=== PATIENT | female | born 1955 | race Caucasian/White ===

== ENCOUNTER 2017-01-09 07:25 | Day surgery (SDC) | payer BC ==
[~2017-01-09 07:25] MED LIST: Buffered Lidocaine 1% SYR 3ML* 3 ML/SYR SYRINGE INTRADERM ONE; Dexamethasone IV* 4 MG/ML 1 ML (4 MG) IV SLOW PU ONE; Famotidine IV* 10 MG/ML 2 ML (20 mg) IV ONE
[2017-01-09] MEDS ORDERED: Dexamethasone IV* 4 MG/ML 1 ML (4 MG) ONE (07:38)
[2017-01-09] MEDS ORDERED: Famotidine IV* 10 MG/ML 2 ML (20 mg) ONE (07:38)
[2017-01-09] MEDS ORDERED: fentaNYL* 50 MCG/ML 2 ML VIAL (100 MCG VIAL) ONE (08:33)
[2017-01-09] MEDS ORDERED: Lidocaine 2% PF * 5 ML VIAL ONE (08:34)
[2017-01-09] MEDS ORDERED: Midazolam* 1 MG/ML 2 ML VIAL (2 MG) ONE (08:34)
[2017-01-09] MEDS ORDERED: Propofol* 10 MG/ML 20 ML BTL IV PUSH ONE (08:34)
[2017-01-09] MEDS ORDERED: Ketorolac INJ* 30 MG/ML 1 ML VIAL ONE (08:34)
[2017-01-09] MEDS ORDERED: PROCHLORPERAZINE INJ 5 MG/ML 2 ML VIAL IV PRN (08:52)
[2017-01-09] MEDS ORDERED: HYDROcodone/ACETAMIN 5-325 MG* 1 TAB PO PRN (08:52)
[2017-01-09] MEDS ORDERED: fentaNYL* 50 MCG/ML 2 ML VIAL (100 MCG VIAL) IV PRN (08:52)
[2017-01-09] MEDS ORDERED: Phenylephrine IV* 40 MCG/ML 10 ML SYRINGE ONE (09:07)
[2017-01-09] MEDS ORDERED: Ondansetron INJ* 2 MG/ML VIAL ONE (09:16)
[2017-01-09] MEDS ORDERED: Ibuprofen TAB* 600 MG PO PRN (09:38)
[2017-01-09] MEDS ORDERED: oxyCODONE/Acetamin 5/325 MG* TAB PO PRN ×2 (09:39→09:41)
[2017-01-09] MEDS ORDERED: HYDROcodone/ACETAMIN 5-325 MG* 1 TAB ONE (10:06)
[2017-01-09 11:21] VITALS: BP 110/63
--- NOTE | 2017-01-09 23:56 | OP ---
AMENDED REPORT NOW INCLUDES DATE OF OPERATION - ESIGNED BEFORE ADJUSTMENT * DATE OF OPERATION: 01/09/17 - [facility] DATE OF : 53 SURGEON: Layla Bosch MD ANESTHESIOLOGIST: Dr. Mason. ANESTHESIA: General endotracheal anesthesia. PRE-OP DIAGNOSIS: Postmenopausal bleeding, thickened endometrium. POST-OP DIAGNOSIS: Postmenopausal bleeding, thickened endometrium. OPERATIVE PROCEDURE: Dilation, hysteroscopy, curettage. ESTIMATED BLOOD LOSS: Less than 20 cc. SPECIMENS: Endometrial curettings. FLUIDS: Per anesthesia. FINDINGS: Small anteverted uterus, midline cervix. No adnexal masses palpated. On hysteroscopy, both tubal ostia were visualized and the endometrium appeared atrophic throughout except for there was an area with small polypoid looking tissue near the right tubal ostia and an area of slightly thickened appearing endometrium distal to the right tubal ostia. COMPLICATIONS: None. COUNTS: Sponge, lap, and needle count were x2. The patient was brought to recovery room awake and in stable condition. DESCRIPTION OF PROCEDURE: The patient was brought to the operating room and general anesthesia was found to be adequate. The patient was prepped and draped in the usual sterile fashion in a dorsal lithotomy position. A time-out was performed. Exam under anesthesia was performed. The weighted speculum was placed in a vagina. The anterior lip of the cervix was grasped with a single tooth tenaculum. The cervix was gently and easily dilated with the graduated [place] dilators. The hysteroscope was introduced with the above findings noted. The hysteroscope was removed. Curettage was performed. Endometrial curettings were sent to pathology. The tenaculum was removed from the anterior lip of the cervix. Excellent hemostasis was visualized. All instruments were removed. The patient was brought to the recovery room awake and in a stable condition. [id number]/[facility] #: [id number] [facility]
== END 2017-01-09 11:24 | disposition home or self-care (01) ==
LOC: OR 07:25
PROVIDERS: ATTEND Obstetrics & Gynecology
DX: N95.0 Postmenopausal bleeding (principal)
CPT/HCPCS: 88305; J1100; J1885; J2250; J2405; J2704; J3010

== ENCOUNTER 2018-02-12 06:13 | Day surgery (SDC) | payer BC ==
[~2018-02-12 06:13] MED LIST changes: +Buffered Lidocaine 0.9% SYRIN* 5 ML/SYR SYRINGE INTRADERM ONE; -Buffered Lidocaine 1% SYR 3ML* 3 ML/SYR SYRINGE INTRADERM ONE; -Dexamethasone IV* 4 MG/ML 1 ML (4 MG) IV SLOW PU ONE; -Famotidine IV* 10 MG/ML 2 ML (20 mg) IV ONE
[2018-02-12] MEDS ORDERED: Midazolam* 1 MG/ML 2 ML VIAL (2 MG) ONE (07:24)
[2018-02-12] MEDS ORDERED: fentaNYL* 50 MCG/ML 2 ML VIAL (100 MCG VIAL) ONE ×2 (07:24→08:02)
[2018-02-12] MEDS ORDERED: Lidocaine 2% PF * 5 ML VIAL ONE (07:25)
[2018-02-12] MEDS ORDERED: Famotidine IV* 10 MG/ML 2 ML (20 mg) ONE (07:59)
[2018-02-12] MEDS ORDERED: Propofol* 10 MG/ML 20 ML BTL IV PUSH ONE (07:59)
[2018-02-12] MEDS ORDERED: Ketorolac INJ* 30 MG/ML 1 ML VIAL ONE (07:59)
[2018-02-12] MEDS ORDERED: Ondansetron INJ* 2 MG/ML VIAL ONE (07:59)
[2018-02-12] MEDS ORDERED: Dexamethasone IV* 4 MG/ML 1 ML (4 MG) ONE (07:59)
[2018-02-12] MEDS ORDERED: DiMENhydriNATE IV* 50 MG/ML VIAL IV PUSH PRN (08:06)
[2018-02-12] MEDS ORDERED: Scopolamine 1.5 mg* PATCH TRANSDERM PRN (08:06)
[2018-02-12] MEDS ORDERED: Ondansetron INJ* 2 MG/ML VIAL IV PRN (08:06)
[2018-02-12] MEDS ORDERED: oxyCODONE TAB* 5 MG TAB PO PRN (08:06)
[2018-02-12] MEDS ORDERED: Acetaminophen TAB* 325 MG PO PRN (08:06)
[2018-02-12] MEDS ORDERED: fentaNYL* 50 MCG/ML 2 ML VIAL (100 MCG VIAL) IV PRN (08:06)
[2018-02-12] MEDS ORDERED: Naloxone* 0.4 MG/ML 1 ML VIAL IV PRN (08:06)
[2018-02-12] MEDS ORDERED: PROCHLORPERAZINE INJ 5 MG/ML 2 ML VIAL IV PRN (08:06)
[2018-02-12] MEDS ORDERED: oxyCODONE TAB* 5 MG TAB ONE (09:00)
[2018-02-12 10:03] VITALS: BP 112/68
--- NOTE | 2018-02-12 23:30 | OP ---
DATE OF OPERATION: 02/12/18 - [facility] DATE OF : 53 SURGEON: Rachael Faria MD MAINTENANCE PAINTER: None. ANESTHESIOLOGIST: Dr. Devries. ANESTHESIA: General endotracheal anesthesia. PRE-OP DIAGNOSIS: Postmenopausal bleeding. POST-OP DIAGNOSIS: Postmenopausal bleeding. OPERATIVE PROCEDURE: Dilation, curettage, and hysteroscopy. URINE OUTPUT: 100 cc of clear yellow urine. FLUIDS: 800 cc of crystalloid. DEFICIT: Zero. FINDINGS: Revealed normal intrauterine cavity with atrophic endometrial lining , tubal ostia clearly visualized bilaterally. Normal appearing cervix. No bleeding noted before the procedure began. COMPLICATIONS: None apparent. DISPOSITION: Stable to recovery room. DESCRIPTION OF PROCEDURE: The patient was placed in dorsal lithotomy position. Legs were placed in the Seney Ricardo stirrups after undergoing general endotracheal anesthesia. The perineum and vagina were prepped and draped in a sterile standard fashion. The patient was identified with universal protocol for correct procedure, patient and position. A sterile self cath was inserted for drainage of clear yellow urine 100 cc. Self cath was removed. Sterile speculum was inserted into the vagina. The cervix was visualized, grasped on the anterior lip with a single-tooth tenaculum and dilated to #7 Hegar dilator. A 5-mm hysteroscope was then inserted. Normal uterine cavity was noted. Hysteroscope was removed. A sharp curettage was performed. Hysteroscope was reinserted to document excellent sampling of the endometrial cavity. A single- tooth tenaculum was removed from the anterior lip of the cervix. Hemostasis was noted. Sterile speculum was removed. All sponge, instrument and blade counts were correct throughout the entirety of the case. Specimen was sent to pathology for further evaluation. [id number]/[facility] #: [id number] MTDD
[2018-02-15] MEDS ORDERED: Scopolamine PATCH Remove* 1 NOTE MISC PATCH OFF ONE (08:07)
== END 2018-02-12 10:40 | disposition home or self-care (01) ==
LOC: OR 06:13
PROVIDERS: ATTEND Obstetrics & Gynecology
DX: N95.0 Postmenopausal bleeding (principal); N85.00 Endometrial hyperplasia, unspecified; Z88.1 Allergy status to other antibiotic agents; Z88.8 Allergy status to other drugs, medicaments and biological substances
CPT/HCPCS: 88305; A9270-GY; J1100; J1885; J2250; J2405; J2704; J3010